=== PATIENT | female | born 1990 | race African-American/Black ===

== ENCOUNTER 2019-11-29 08:22 | Emergency (ER) | payer MEDICAID ==
[~2019-11-29] VITALS: Ht 160 cm; Wt 81.0 kg
[2019-11-29 10:53] VITALS: BP 115/88
== END 2019-11-29 10:56 | disposition home or self-care (01) ==
LOC: ER 08:32
DX: J06.9 Acute upper respiratory infection, unspecified (principal); J45.909 Unspecified asthma, uncomplicated
CPT/HCPCS: 71046; 81025; 87804; 99284